=== PATIENT | male | born 1980 | race Caucasian/White ===

== ENCOUNTER 2022-12-01 23:08 | Inpatient (IN) | payer OTHER, SELFPAY ==
[2022-12-01 23:10] VITALS: BP 139/87; PULSE 129; RESP 20; TEMP 38.6; O2SAT 92; BMI 43.4
[2022-12-01 23:15] VITALS: O2SAT 94
--- NOTE | 2022-12-01 23:15 | EKG12_ITS ---
Test Reason : DYSRHYTHMIA Blood Pressure : / mmHG Vent. Rate : 126 BPM Atrial Rate : 126 BPM P-R Int : 144 ms QRS Dur : 094 ms QT Int : 304 ms P-R-T Axes : 062 022 007 degrees QTc Int : 440 ms Sinus tachycardia Otherwise normal ECG Confirmed by SIS GOLDSTEIN, PETAR ([id number]), newspaper or periodical editor ROSIBEL ESQUEDA ([id number]) on 12/03/2022 12:19:19 PM Referred By: BETI Confirmed By:PETAR ALEGRE MD
--- NOTE | 2022-12-01 23:17 | ED.VIS.DYS ---
HPI History of Present Illness Chief Complaint: Shortness of Breath Narrative Narrative: Patient presents with shortness of breath for the past few days also with fever and a slight cough. 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 He has been taking his medications and he has been eating and drinking relatively well. [facility] Medical History (Updated 12/02/22 @ 00:[address] Nolan Toscano MD) Meningitis Home Medications divalproex 500 mg tablet,extended release 24 hr 1,000 mg PO BID 12/02/22 [History Last Taken Unknown] haloperidol 1 mg tablet 2 mg PO DAILY 12/02/22 [History Last Taken Unknown] Allergy/AdvReac Type Severity Reaction Status Date / Time ibuprofen AdvReac Other Verified 12/02/22 00:00 Social History Smoking Status: Never smoker ROS ROS ED ROS Narrative Past medical history: Reviewed Medications: Reviewed Social history: Noncontributory Review of systems: All systems negative except as indicated General: Fever as in HPI Eyes: No visual changes ENT: No upper airway congestion, normal voice Neck: No neck pain Cardiovascular: No chest pain Respiratory: Difficulty breathing Gastrointestinal: No abdominal pain, nausea vomiting or diarrhea Genitourinary: No dysuria Musculoskeletal: Denies myalgias no difficulty with ambulation Skin: No rash EXAM Physical Exam Narrative Exam Narrative: Physical exam General: Patient appears in some distress. Head: Normocephalic, Atraumatic Eyes: Conjunctiva not pale ENT: Slightly dry mucous membranes Neck: Supple, Nontender, No lymphadenopathy Cardiovascular: Regular tachycardia Respiratory: He is tachypneic but overall clear breath sounds. Abdomen: Soft, Nontender, Nondistended Back: Nontender, Normal Inspection. Negative for: CVA tenderness Extremities: Nontender, No edema Skin: Normal color, No rash Neurological: No focal deficit Const Vital Signs: 12/01/22 23:10 12/01/22 23:28 12/01/22 23:28 Temperature 101.5 F H Temperature Source Oral Pulse Rate 129 H 130 H Respiratory Rate 20 H 26 H 28 H Respiratory Effort Non-Labored Short of Breath Respiratory Depth Shallow Respiratory Pattern Tachypnea Tachypnea Blood Pressure 139/87 H Blood Pressure Mean 104 Pulse Ox 92 93 Oxygen Delivery Method Room Air Room Air Oxygen Flow Rate (L/min) 12/01/22 23:15 12/01/22 23:58 Temperature Temperature Source Pulse Rate 125 H Respiratory Rate 32 H Respiratory Effort Respiratory Depth Respiratory Pattern Blood Pressure 139/81 H Blood Pressure Mean 100 Pulse Ox 94 94 Oxygen Delivery Method Nasal Cannula Nasal Cannula Oxygen Flow Rate (L/min) 2 2 MDM MDM Lab Data Labs: Laboratory Results - last 24 hr 12/01/22 12/01/22 12/01/22 00:16 23:25 23:25 WBC 11.6 H RBC 4.57 L Hgb 12.9 L Hct 38.6 L MCV 84.5 MCH 28.2 MCHC 33.4 RDW Std Deviation 41.9 RDW Coeff of Deepak 13.7 Plt Count 188 MPV 10.8 Immature Gran % (Auto) 1.600 H Neut % (Auto) 75.0 H Lymph % (Auto) 13.4 L [place] % (Auto) 9.0 Eos % (Auto) 0.6 Baso % (Auto) 0.4 Absolute Neuts (auto) 8.7 H Absolute Lymphs (auto) 1.55 Nucleated RBC % 0 PT 14.4 INR 1.2 APTT 31.2 Sodium Potassium Chloride Carbon Dioxide Anion Gap BUN Creatinine Estim Creat Clear Calc Est GFR (MDRD) Af Amer Est GFR (MDRD) Non-Af BUN/Creatinine Ratio Glucose Lactic Acid Calcium Total Bilirubin AST ALT Alkaline Phosphatase Troponin I High Sens Total Protein Albumin Globulin Albumin/Globulin Ratio Procalcitonin Urine Color Yellow Urine Clarity Clear Urine pH 7.0 Ur Specific [place] 1.005 Urine Protein 30 H Urine Glucose (UA) Normal Urine Ketones 50 H Urine Occult Blood 25 H Urine Nitrite Negative Urine Bilirubin Negative Urine Urobilinogen 1 H Ur Leukocyte Esterase Negative 12/01/22 12/01/22 12/01/22 23:25 23:25 23:25 WBC RBC Hgb Hct MCV MCH MCHC RDW Std Deviation RDW Coeff of Deepak Plt Count MPV Immature Gran % (Auto) Neut % (Auto) Lymph % (Auto) [place] % (Auto) Eos % (Auto) Baso % (Auto) Absolute Neuts (auto) Absolute Lymphs (auto) Nucleated RBC % PT INR APTT Sodium 137 Potassium 3.5 Chloride 104 Carbon Dioxide 24.0 Anion Gap 9 BUN 11 Creatinine 1.19 Estim Creat Clear Calc 85.25 Est GFR (MDRD) Af Amer 86 Est GFR (MDRD) Non-Af 71 BUN/Creatinine Ratio 9.2 L Glucose 118 H Lactic Acid 0.8 Calcium 8.8 Total Bilirubin 0.40 AST 16 ALT 23 Alkaline Phosphatase 64 Troponin I High Sens 11 Total Protein 7.6 Albumin 2.9 L Globulin 4.7 H Albumin/Globulin Ratio 0.6 L Procalcitonin 0.36 H Urine Color Urine Clarity Urine pH Ur Specific [place] Urine Protein Urine Glucose (UA) Urine Ketones Urine Occult Blood Urine Nitrite Urine Bilirubin Urine Urobilinogen Ur Leukocyte Esterase ABG Data ABG results: ABG 12/01/22 23:45 Specimen Type LUCI VBG pH 7.50 H VBG pO2 116 H VBG HCO3 22 VBG Total CO2 23 VBG O2 Sat (Calc) 99 H VBG Base Excess -1 POC Mix VBG pCO2 Pt Tmp 28.7 L O2 Delivery Device Room Air Radiography Diagnostic Testing: Clinical Impression(s) from Imaging Studies Chest X-Ray 12/01/22 23:50 IMPRESSION: 1. Mild patchy opacity right lung base medially may be due to atelectasis or small area of consolidation/pneumonia. 2. Low lung volumes limit the exam. Electronically Signed: Yosi Abad MD at 0:12 EST , Chest x-ray interpreted by me shows a right-sided pneumonia. EKG Initial EKG: Comments: Sinus rhythm with a rate of 126. Normal IA interval. Normal QTc intervals. No acute ischemic changes. Interpreted by emergency doctor Treatment and Re-Evaluation Narrative: A. Problems addressed Patient is found to have a right-sided pneumonia he is tachypneic at baseline his oxygen was 92% with a heart rate in the 130s, this improved with oxygen and IV fluids. He is given Rocephin and azithromycin blood cultures were drawn. He does not manifest evidence of septic shock at this time but he certainly has sepsis and because of his breathing difficulties significant respiratory distress he will need to be admitted. B. Amount and/or complexity of the data 1. I talked to the patient's [id number] Blood work including CBC lactate CMP COVID were all ordered interpreted by me 2. Independent interpretation of test Telemetry: Sinus rhythm with a rate in the 120s 3. I discussed the patient with the hospitalist will admit C. Risk of complications and/or morbidity Differential diagnosis: I thought about pulmonary embolism however I see a right-sided pneumonia on the x-ray patient has a fever and leukocytosis therefore I believe this is likely the etiology. I thought about pneumothorax over the x-ray does not show this. I thought about CHF however x-ray and physical exam are not consistent with this. Critical Care Time Critical Care Time: Yes Critical care time (excluding procedures): 30-74 minutes, Discussing w/Patient &/or Family/Engineer Intern, Discussing w/Consultants, Arranging Admission or Transfer, Performing Direct Patient Care at Bedside and - (Critical care time is 30 minutes. Patient has borderline hypoxia sepsis and pneumonia he has cognitive disability and it is difficult to get information from him I had to get information from sources. I did spend time at the bedside in time with the family as well discussing care with hospitalist.) Discharge Plan Dx/Rx/DC Orders Clinical Impression: Pneumonia, Acute respiratory distress, Tachypnea, Sepsis, Cognitive developmental delay Disposition Disposition: Acute Care Hospital [facility]
[2022-12-01 23:28] VITALS: PULSE 130; RESP 26; RESP 28; O2SAT 93
[2022-12-01] MEDS: Ipratropium/Albuterol Sulfate 3 ML AMPUL.NEB INHALATION (23:28)
[2022-12-01] MEDS: Ketorolac 30 MG/ML Syringe IV (23:28)
[2022-12-01] MEDS: 0.9% Normal Saline 1,000 ML 999 ML IV (23:29)
[2022-12-01 23:46] LABS: International Normalized Ratio 1.2; Prothrombin Time (Protime)PT. 14.4 SECONDS (11.7-14.9)
[2022-12-01 23:47] LABS: Partial Thromboplast Time 31.2 Seconds (24.1-36.2)
[2022-12-01 23:50] LABS: Absolute Lymphocyte Count 1.55 X10^3/uL (0.83-4.51); Absolute Neutrophil Count 8.7 X10^3/uL (2.0-7.7); Basophil# 0.05 X10^3/uL; Basophil% 0.4 % (0-1); Eosinophil# 0.07 X10^3/uL; Eosinophils% 0.6 % (0-5); Hematocrit 38.6 % (40-54); Hemoglobin 12.9 g/dL (13.0-16.5); Lymphocyte # 1.55 X10^3/ul (0.83-4.51); Lymphocyte % 13.4 % (19-41); Mean Corp Hgb Conc 33.4 g/dL (32-36); Mean Corpuscular Hgb 28.2 pg (27.0-32.0); Mean Corpuscular Volume 84.5 fL (80-94); Mean Platelet Vol. 10.8 fl (6.2-12.0); Monocyte# 1.04 X10^3/uL; NRBC Flagged by Analyzer 0 % (0-5); Platelet Count 188 K/mm3 (150-450); RBC Distribution Width CV 13.7 % (11.6-14.6); RBC Distribution Width SD 41.9 fl (35.1-43.9); Red Blood Count 4.57 M/mm3 (4.6-6.2); White Blood Count 11.6 K/mm3 (4.4-11.0)
[2022-12-01 23:50] LABS: Blood Gas Specimen Type VEN; O2 Delivery Device Room Air; VBG BASE EXCESS -1 mmol/L (-1.0-3.5); VBG Bicarbonate 22 mmol/L (22-26); VBG PO2 116 mmHg (25-40); VBG SO2 99 % (50-70); VBG TCO2 23 mmol/L (23-33); VBG pCO2 28.7 mmHg (41-51)
--- NOTE | 2022-12-01 23:50 | RAD_ITS ---
EXAM: XR CHEST, 1 VIEW CLINICAL INDICATION: sob TECHNIQUE: Frontal view of the chest. This report was created using [employer] report generation technology. COMPARISON: None. FINDINGS: LUNGS AND PLEURAL SPACES: Mild patchy opacity right lung base medially may be due to atelectasis or small area of consolidation/pneumonia. Low lung volumes limit the exam. No pneumothorax. No effusion. HEART: Unremarkable. Cardiac silhouette not enlarged. MEDIASTINUM: Central airways and mediastinal contour are unremarkable. BONES/JOINTS: Unremarkable. SOFT TISSUES: Unremarkable. RAD/Chest 1 View (Portable) IMPRESSION: 1. Mild patchy opacity right lung base medially may be due to atelectasis or small area of consolidation/pneumonia. 2. Low lung volumes limit the exam. Electronically Signed: Yosi Abad MD at 0:12 EST ,
[2022-12-01 23:58] VITALS: BP 139/81; PULSE 125; RESP 32; O2SAT 94
[2022-12-02] VITALS (11 sets, daily range): BP systolic 121–137; BP diastolic 39–82; PULSE 104–122; RESP 20–28; TEMP 36.5–37.1; O2SAT 88–96; BMI 44.6
[2022-12-02 00:16] LABS: ALB/GLOB Ratio 0.6 RATIO (0.9-2.4); AST(SGOT) 16 U/L (15-37); Alanine Aminotransfer ALT/SGPT 23 U/L (16-61); Albumin, Serum 2.9 g/dL (3.2-5.0); Alkaline Phosphatase 64 U/L (45-117); Anion Gap 9 (5-15); BUN 11 mg/dL (7-18); BUN/Creat Ratio 9.2 RATIO (10-20); Calcium,Total 8.8 mg/dL (8.5-10.1); Chloride 104 mmol/L (98-107); Creatinine, Serum 1.19 mg/dL (0.70-1.30); EST Glomerular Filtration Rate 71 mL/min (>60); Est Glom Filt Rate - Afr Amer 86 mL/min (>60); Estimated Creatinine Clearance 85.25 ml/min; Globulin 4.7 g/dL (2.2-4.2); Glucose 118 mg/dL (74-106); Potassium 3.5 mmol/L (3.5-5.1); Protein, Total 7.6 g/dL (6.4-8.2); Sodium Level 137 mmol/L (136-145); Troponin-I HS 11 pg/mL (3.0-78.0)
[2022-12-02 00:17] LABS: Lactic Acid 0.8 mmol/L (0.4-1.9)
[2022-12-02 00:20] LABS: Bacteria 0 SEEN /hpf (None Seen); Mucous, Urine 0 SEEN /hpf (<or=2+); Squamous Epithelial Cells - UA 0 SEEN /hpf (0-5)
[2022-12-02 00:20] LABS: Procalcitonin 0.36 ng/mL (0.00-0.09)
[2022-12-02] MEDS: Ceftriaxone 1 GM/50 ML BAG IV (00:21)
[2022-12-02 00:22] LABS: Color, Urine Yellow (Yellow); Glucose, Dipstick Normal (Normal); Ketone-Dipstick 50 mg/dl (Negative); Leukocyte Esterase-Dipstick Negative /ul (Negative); Nitrite-Dipstick Negative (Negative); Occult Blood-Urine 25 /ul (Negative); Protein-Dipstick 30 mg/dl (Negative); Specific Gravity, Urine 1.005 (1.002-1.030); Urine Bilirubin Dipstick Negative (Negative); Urine Clarity Clear (Clear); Urine Urobilinogen 1 mg/dl (Normal)
[2022-12-02 00:28] LABS: Red Blood Cells-Urine 0-5 SEEN /hpf (0-5); White Blood Cells 0-5 SEEN /hpf (0-5)
--- NOTE | 2022-12-02 01:05 | HP.PCM.HOS_ITS ---
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 Of note a day before presentation patient developed fever and flulike symptoms. The patient's home temperature was between 101 Fahrenheit to 102 Fahrenheit. Associated with his symptoms is chills and malaise. Also patient was diaphoretic. Further patient developed rash and swelling on his scalp. Per family there are some swelling on patient's scalp is going down. Patient lives at home with his mother. However patient mother has traveled. With patient feeling well other family members moved in to help patient. Of note patient is adopted. Of note patient could only marginally contribute to history secondary to cognitive deficits. Majority of history was provided by patient nephew who was at the bedside. [facility] Medical History Meningitis Home Medications divalproex 500 mg tablet,extended release 24 hr 1,000 mg PO BID 12/02/22 [History Last Taken Unknown] haloperidol 1 mg tablet 2 mg PO DAILY 12/02/22 [History Last Taken Unknown] Allergy/AdvReac Type Severity Reaction Status Date / Time ibuprofen AdvReac Other Verified 12/02/22 00:00 Family History adopted adopted Surgical History no surgical history no surgical history Social History Smoking Status: Never smoker ROS Review of Systems ROS Unobtainable: other Details: Pertinent positives and pertinent negatives that could be provided by patient's family is as noted in HPI. All other systems were reviewed patient's family did not know or they were negative. Vital Signs Vital Signs Vital Signs: 12/01/22 23:10 12/01/22 23:28 12/01/22 23:28 Temperature 101.5 F H Temperature Source Oral Pulse Rate 129 H 130 H Respiratory Rate 20 H 26 H 28 H Respiratory Effort Non-Labored Short of Breath Respiratory Depth Shallow Respiratory Pattern Tachypnea Tachypnea Blood Pressure 139/87 H Blood Pressure Mean 104 Pulse Ox 92 93 Oxygen Delivery Method Room Air Room Air Oxygen Flow Rate (L/min) 02/11/23 23:15 12/01/22 23:58 12/02/22 00:52 Temperature 98.2 F Temperature Source Oral Pulse Rate 125 H 113 H Respiratory Rate 32 H 26 H Respiratory Effort Respiratory Depth Respiratory Pattern Blood Pressure 139/81 H 129/68 H Blood Pressure Mean 100 88 Pulse Ox 94 94 95 Oxygen Delivery Method Nasal Cannula Nasal Cannula Nasal Cannula Oxygen Flow Rate (L/min) 2 2 2 12/02/22 00:54 Temperature Temperature Source Pulse Rate Respiratory Rate Respiratory Effort Short of Breath Respiratory Depth Normal Respiratory Pattern Tachypnea Blood Pressure Blood Pressure Mean Pulse Ox Oxygen Delivery Method Room Air Oxygen Flow Rate (L/min) Weight Weight: 141.1 kg Body Mass Index (BMI) 43.4 Physical Exam Narrative Physical exam: General: Morbidly obese Head: Urticarial rash on forehead and scalp. Normocephalic, atraumatic, no tenderness Eyes: Vision is grossly intact. EOMI ENT, no trauma, moist mucous membranes, no rhinorrhea Neck: Nontender, No thyromegaly. CVS: Regular rate and rhythm. S1-S2 present. No murmur, gallop or rub. Respiratory : clear to auscultation bilaterally, chest wall nontender, no wheezing Abdomen: Soft, nontender, nondistended, normal bowel sounds, no masses : Deferred Back: Nontender, no CVA tenderness, no midline spinal tenderness, deformities, step-offs Extremities: Nontender full range of motion, no trauma Skin: Normal color, no trauma, abrasions Neuro: Alert, cranial nerves II through XII grossly intact. Psychiatry: Normal mood. Normal affect. Not depressed. Not anxious. Results Lab / Micro Data Result Diagrams: 12/01/22 23:25 12/01/22 23:25 Labs: Laboratory Results - last 24 hr 12/01/22 00:16: Urine Color Yellow, Urine Clarity Clear, Urine pH 7.0, Ur Specific [place] 1.005, Urine Protein 30 H, Urine Glucose (UA) Normal, Urine Ketones 50 H, Urine Occult Blood 25 H, Urine Nitrite Negative, Urine Bilirubin Negative, Urine Urobilinogen 1 H, Ur Leukocyte Esterase Negative, Urine RBC 0-5 SEEN, Urine WBC 0-5 SEEN, Ur Squamous Epith Cells 0 SEEN, Urine Bacteria 0 SEEN, Urine Mucus 0 SEEN 12/01/22 23:25: WBC 11.6 H, RBC 4.57 L, Hgb 12.9 L, Hct 38.6 L, MCV 84.5, MCH 28.2, MCHC 33.4, RDW Std Deviation 41.9, RDW Coeff of Deepak 13.7, Plt Count 188, MPV 10.8, Immature Gran % (Auto) 1.600 H, Neut % (Auto) 75.0 H, Lymph % (Auto) 13.4 L, [place] % (Auto) 9.0, Eos % (Auto) 0.6, Baso % (Auto) 0.4, Absolute Neuts (auto) 8.7 H, Absolute Lymphs (auto) 1.55, Nucleated RBC % 0 12/01/22 23:25: PT 14.4, INR 1.2, APTT 31.2 12/01/22 23:25: Sodium 137, Potassium 3.5, Chloride 104, Carbon Dioxide 24.0, Anion Gap 9, BUN 11, Creatinine 1.19, Estim Creat Clear Calc 85.25, Est GFR (MDRD) Af Amer 86, Est GFR (MDRD) Non-Af 71, BUN/Creatinine Ratio 9.2 L, Glucose 118 H, Calcium 8.8, Total Bilirubin 0.40, AST 16, ALT 23, Alkaline Phosphatase 64, Troponin I High Sens 11, Total Protein 7.6, Albumin 2.9 L, Globulin 4.7 H, Albumin/Globulin Ratio 0.6 L 12/01/22 23:25: Lactic Acid 0.8 12/01/22 23:25: Procalcitonin 0.36 H Micro: Microbiology 12/01/22 23:30 Nasal Secretion SARS-CoV-2 Antigen (Rapid) - Final ABG Data ABG results: ABG 12/01/22 23:45 Specimen Type LUCI VBG pH 7.50 H VBG pO2 116 H VBG HCO3 22 VBG Total CO2 23 VBG O2 Sat (Calc) 99 H VBG Base Excess -1 POC Mix VBG pCO2 Pt Tmp 28.7 L O2 Delivery Device Room Air Radiology Impression Chest X-Ray 12/01/22 23:50 IMPRESSION: 1. Mild patchy opacity right lung base medially may be due to atelectasis or small area of consolidation/pneumonia. 2. Low lung volumes limit the exam. Electronically Signed: Yosi Abad MD at 0:12 EST , Assessment & Plan Assessment/Plan (1) Pneumonia: (2) Acute respiratory distress: PLAN: Plan Pneumonia Gram-positive or gram-negative. Respiratory rate in the high 20s and 30s on presentation and with tachycardia highest of 130 Patient meets SIRS criteria. Chest x-ray: With radiographic evidence of opacity at right base. Chest x-ray was independently interpreted and I agree with radiologist interpretation. Source of infection pneumonia Sepsis rule out as there is no organ dysfunction. Antibiotics: Started on Rocephin and azithromycin emergency department. Rocephin continued. Doxycycline ordered. Albuterol as needed Legionella antigen screen and Strep antigen ordered CBC showed white count of 11,600, trend. Also with bandemia of 1.6%. Procalcitonin is indeterminate at 0.36. Urticaria rash on scalp Per family improving. Doxycycline as above. Psychiatry disease Stable Home Haldol and valproic acid continued. DVT prophylaxis Subcutaneous Lovenox ordered. Charges/Coding Visit Charges Inpatient E&M: 53935 Init Hosp L3
[2022-12-02 05:17] LABS: Absolute Lymphocyte Count 1.49 X10^3/uL (0.83-4.51); Absolute Neutrophil Count 9.1 X10^3/uL (2.0-7.7); Basophil# 0.04 X10^3/uL; Basophil% 0.3 % (0-1); Eosinophil# 0.06 X10^3/uL; Eosinophils% 0.5 % (0-5); Hematocrit 38.8 % (40-54); Hemoglobin 12.6 g/dL (13.0-16.5); Lymphocyte # 1.49 X10^3/ul (0.83-4.51); Lymphocyte % 12.4 % (19-41); Mean Corp Hgb Conc 32.5 g/dL (32-36); Mean Corpuscular Hgb 27.6 pg (27.0-32.0); Mean Corpuscular Volume 85.1 fL (80-94); Monocyte# 1.17 X10^3/uL; Monocyte% 9.8 % (0-10); NRBC Flagged by Analyzer 0 % (0-5); Neutrophil # 9.12 X10^3/uL (2.7-7.7); Neutrophil % 76.2 % (47-70); Platelet Count 195 K/mm3 (150-450); RBC Distribution Width CV 13.7 % (11.6-14.6); RBC Distribution Width SD 42.6 fl (35.1-43.9); Red Blood Count 4.56 M/mm3 (4.6-6.2)
[2022-12-02 05:53] LABS: Anion Gap 9 (5-15); BUN 12 mg/dL (7-18); BUN/Creat Ratio 10.7 RATIO (10-20); Calcium,Total 8.4 mg/dL (8.5-10.1); Chloride 102 mmol/L (98-107); Creatinine, Serum 1.12 mg/dL (0.70-1.30); EST Glomerular Filtration Rate 76 mL/min (>60); Est Glom Filt Rate - Afr Amer 92 mL/min (>60); Estimated Creatinine Clearance 90.58 ml/min; Glucose 115 mg/dL (74-106); Potassium 3.4 mmol/L (3.5-5.1); Sodium Level 136 mmol/L (136-145)
[2022-12-02] MEDS: Haloperidol 1 MG Tablet 2 MG PO (09:29)
[2022-12-02] MEDS: Potassium Chloride Oral Tablet 20 MEQ 40 MEQ PO ×2 (09:29→11:22)
[2022-12-02] MEDS: Enoxaparin 40 MG/0.4 ML Syringe SC ×2 (09:29→21:21)
[2022-12-02] MEDS: 0.9% Saline Lock 10 ML Syringe IV (09:30)
[2022-12-02] MEDS: Divalproex (ER) 500 MG Tablet 1000 MG PO ×2 (09:30→21:21)
--- NOTE | 2022-12-02 14:20 | PCM.PN.HOSP ---
Reason for Visit Reason for Visit: Diagnoses Pneumonia, unspecified organism (12/02/22) Acute respiratory distress (12/02/22) Subjective Subjective Follow-up for shortness of breath and fever. Possible pneumonia Objective Data Objective Data Vital Signs: Vital Signs Temp Pulse Resp BP Pulse Ox O2 Del Method O2 Flow Rate 97.7 F L 120 H 28 H 128/77 H 96 Nasal Cannula 2 12/02/22 02:17 12/02/22 02:19 12/02/22 02:19 12/02/22 02:17 12/02/22 02:17 12/02/22 02:19 12/02/22 02:19 Oxygen Flow Rate (L/min) 2 Oxygen Delivery Method Nasal Cannula Weight: 320 lb 5.306 oz Body Mass Index (BMI) 44.6 Intake & Output: Intake and Output for Last 24 Hours 11/30/22 12/01/22 12/02/22 23:59 23:59 23:59 Intake Total 1565 / 1565 Output Total 200 / 200 Balance 1365 / 1365 Lab / Micro Data Result Diagrams: 12/02/22 04:58 12/02/22 04:58 Labs: Laboratory Results - last 24 hr 12/01/22 00:16: Urine Color Yellow, Urine Clarity Clear, Urine pH 7.0, Ur Specific [place] 1.005, Urine Protein 30 H, Urine Glucose (UA) Normal, Urine Ketones 50 H, Urine Occult Blood 25 H, Urine Nitrite Negative, Urine Bilirubin Negative, Urine Urobilinogen 1 H, Ur Leukocyte Esterase Negative, Urine RBC 0-5 SEEN, Urine WBC 0-5 SEEN, Ur Squamous Epith Cells 0 SEEN, Urine Bacteria 0 SEEN, Urine Mucus 0 SEEN 12/01/22 23:25: WBC 11.6 H, RBC 4.57 L, Hgb 12.9 L, Hct 38.6 L, MCV 84.5, MCH 28.2, MCHC 33.4, RDW Std Deviation 41.9, RDW Coeff of Deepak 13.7, Plt Count 188, MPV 10.8, Immature Gran % (Auto) 1.600 H, Neut % (Auto) 75.0 H, Lymph % (Auto) 13.4 L, [place] % (Auto) 9.0, Eos % (Auto) 0.6, Baso % (Auto) 0.4, Absolute Neuts (auto) 8.7 H, Absolute Lymphs (auto) 1.55, Nucleated RBC % 0 12/01/22 23:25: PT 14.4, INR 1.2, APTT 31.2 12/01/22 23:25: Sodium 137, Potassium 3.5, Chloride 104, Carbon Dioxide 24.0, Anion Gap 9, BUN 11, Creatinine 1.19, Estim Creat Clear Calc 85.25, Est GFR (MDRD) Af Amer 86, Est GFR (MDRD) Non-Af 71, BUN/Creatinine Ratio 9.2 L, Glucose 118 H, Calcium 8.8, Total Bilirubin 0.40, AST 16, ALT 23, Alkaline Phosphatase 64, Troponin I High Sens 11, Total Protein 7.6, Albumin 2.9 L, Globulin 4.7 H, Albumin/Globulin Ratio 0.6 L 12/01/22 23:25: Lactic Acid 0.8 12/01/22 23:25: Procalcitonin 0.36 H 12/02/22 04:58: WBC 12.0 H, RBC 4.56 L, Hgb 12.6 L, Hct 38.8 L, MCV 85.1, MCH 27.6, MCHC 32.5, RDW Std Deviation 42.6, RDW Coeff of Deepak 13.7, Plt Count 195, MPV 11.0, Immature Gran % (Auto) 0.800, Neut % (Auto) 76.2 H, Lymph % (Auto) 12.4 L, [place] % (Auto) 9.8, Eos % (Auto) 0.5, Baso % (Auto) 0.3, Absolute Neuts (auto) 9.1 H, Absolute Lymphs (auto) 1.49, Nucleated RBC % 0 12/02/22 04:58: Sodium 136, Potassium 3.4 L, Chloride 102, Carbon Dioxide 25.0, Anion Gap 9, BUN 12, Creatinine 1.12, Estim Creat Clear Calc 90.58, Est GFR (MDRD) Af Amer 92, Est GFR (MDRD) Non-Af 76, BUN/Creatinine Ratio 10.7, Glucose 115 H, Calcium 8.4 L Micro: Microbiology 12/02/22 00:16 Urine, Clean Catch Legionella Antigen - Final 12/02/22 00:16 Urine, Clean Catch Streptococcus pneumoniae Antigen (M - Final 12/01/22 23:30 Mucosa - Nasopharyngeal Respiratory Panel (PCR) - Final 12/01/22 23:30 Nasal Secretion SARS-CoV-2 Antigen (Rapid) - Final ABG Data ABG results: ABG 12/01/22 23:45 Specimen Type LUCI VBG pH 7.50 H VBG pO2 116 H VBG HCO3 22 VBG Total CO2 23 VBG O2 Sat (Calc) 99 H VBG Base Excess -1 POC Mix VBG pCO2 Pt Tmp 28.7 L O2 Delivery Device Room Air Radiography Diagnostic Testing: Radiology Impression Chest X-Ray 12/01/22 23:50 IMPRESSION: 1. Mild patchy opacity right lung base medially may be due to atelectasis or small area of consolidation/pneumonia. 2. Low lung volumes limit the exam. Electronically Signed: Yosi Abad MD at 0:12 EST , Physical Exam Narrative Seen and examined. Discussed with patient's mother, brother and sister near the bedside. 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 Patient denies features of aspiration, cough or choking while eating. He wakes up during the night possible sleep apnea. Physical exam General: Alert, Oriented x3, Cooperative, morbidly obese, BMI 44.7 kg/m? HEENT: Atraumatic, PERRLA, EOMI, Normocephalic Oral: Deep oropharyngeal structures could not be clearly visualized. No Gingival or Mucosal Lesions/ Ulcerations Neck: Supple, No JVD, Negative Carotid Bruits Lungs: Air entry diminished in bilateral lung bases. No crepitation/rhonchi Cardiovascular: Regular rate, Regular Rhythm, Normal S1, Normal S2, No murmurs Abdomen: Bowel Sounds Present, Soft, Non Tender, Non-Distended : No renal angle tenderness. No suprapubic tenderness. Extremities: No edema, Capillary Refill Less than 3 Seconds Skin: Erythematous rash with thickened skin present over forehead extending to temples, seems chronic dermatitis. Musculoskeletal: No Tenderness to Palpation of Joints or Extremities. ROM full and intact. Neurological: Cranial nerves II-XII grossly intact, DTR 2+/4 , Neuro grossly intact Psych/Mental Status: Mild cognitive deficit. Assessment & Plan Assessment/Plan (1) Pneumonia: (2) Acute respiratory distress: PLAN: Plan This is a 42-year-old gentleman who was admitted for shortness of breath and mild fever.As per sister, patient's home temperature was between 101 202 Fahrenheit. Possible right lower lobe pneumonia/atelectasis: Exact etiology unclear. Chest x-ray initially reviewed and shows right middle lower lobe infiltrate. Patient does not have sepsis therefore ruled out. On IV ceftriaxone and and doxycycline. Patient was tachycardic and tachypneic in ED. CBC is shows mild leukocytosis. Procalcitonin mildly elevated. Rapid SARS-CoV-2 antigen, urinary antigens and respiratory panel are negative. Will need outpatient pulmonary clinic visit for PFT and sleep study. Mild hypokalemia, potassium replaced. 2. Chronic dermatitis on the scalp: Patient family not aware of atopic dermatitis but patient might have history of asthma as per mother. Hydrocortisone topical cream ordered. 3. 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 Follow-up DVT prophylaxis Subcutaneous Lovenox ordered.
[2022-12-02] MEDS: Hydrocortisone 2.5% Crm 1 APPLIC TOPICAL ×2 (16:49→21:20)
[2022-12-02] MEDS: Doxycycline 100 MG CAPSULE PO (21:23)
[2022-12-03 04:00] VITALS: BP 110/76; PULSE 99; RESP 20; TEMP 36.9; O2SAT 96
--- NOTE | 2022-12-03 07:37 | DCINST_ITS ---
Discharge Instructions Diet Discharge Diet: No restrictions Activity Discharge Activity: Return to Normal Activity Weight Bearing Status: Weight bearing as tolerated Dressing / Incision Call your doctor if you observe: Fever of 101 or Higher, Coldness, Increased Pain, Numbness or Tingling, Change in Color, Inability to urinate, Inability to have a bowel movement, Shortness of breath, Dizziness, Fainting spells, Swelling in the ankles, Chest pain, Prolonged hiccupping, Increased palpitations (irregular heartbeat) and Calf discomfort Follow Up Care When: IN 2 WEEKS Test Results: Test results from this visit will be discussed in further detail at your follow- up appointment, if applicable. Discharge Plan Admission Admit Date/Time: 12/02/22 01:06 Primary Reason for Your Visit: Suspected pneumonia. Attending Provider: Andrea Joseph Primary Care Provider: Andrew Miles Consulting Providers: Vince Sosa Discharge Orders/Prescriptions Prescriptions: New levofloxacin 500 mg tablet 500 mg PO DAILY 5 Days Qty: 5 0RF hydrocortisone 2.5 % Cream 1 applic topical BID Qty: 28 0RF Protocol: *Topical Application Instructions APPLICATION INSTRUCTIONS: On forehead Rx Instructions: apply on forehead Continued haloperidol 1 mg Tablet 2 mg PO DAILY divalproex 500 mg Tablet Extended Release 24 Hr 1,000 mg PO BID Referrals / Follow Up: Cecilio Avila DO [Med Staff - Active Staff] - Within 1 Month (for PFT and sleep study.) Pili Castaneda MD [Non-Staff] - Andrew Miles MD [Primary Care Provider] - Disposition Disposition (needs filled in before D/C Order can be placed): Home, Self Care
[2022-12-03 08:22] VITALS: O2SAT 92
[2022-12-03 08:47] VITALS: BP 141/98; PULSE 97; RESP 20; TEMP 36.6; O2SAT 97
[2022-12-03] MEDS: Doxycycline 100 MG CAPSULE PO (08:48)
[2022-12-03] MEDS: Divalproex (ER) 500 MG Tablet 1000 MG PO (08:48)
[2022-12-03] MEDS: Hydrocortisone 2.5% Crm 1 APPLIC TOPICAL (08:48)
[2022-12-03] MEDS: Enoxaparin 40 MG/0.4 ML Syringe SC (08:48)
[2022-12-03] MEDS: 0.9% Saline Lock 10 ML Syringe IV (08:51)
[2022-12-03] MEDS: Haloperidol 1 MG Tablet 2 MG PO (08:51)
--- NOTE | 2022-12-03 13:00 | CASEMGMT ---
RN?CM?FITNESS TECHNICIAN?CM?to room to meet with patient and his mother for initial transition planning/care coordination?assessment.?RN?CM?introduced self and role at [facility].?? Pt resting in bed in no distress at this time.? Pt is A/O, but has some cognitive delays d/t childhood meningitis. Mother/GdnCamila, is at bedside and the following information obtained from her. Care providers, pharmacy, and demographics verified/updated at this time. PCP: Dr Miles @ [facility] Specialists: Pili Castaneda-psychiatrist Preferred Pharmacy: [facility] retail Insurance: [facility] package plan Prescription Benefit:?none Living Will/HPOA:?Mother, Camila Mitchell, states she is legal guardian. LNOK: Mother/guardianCamila Living Arrangements: Lives w/mother in one-story home w/basement and 3 steps to enter. Pt is independent w/ADL's and states he enjoys cooking. Mother assists w/medications and w/taking care of pt. Pt works at a restaurant bussing tables. Transportation:?mother drives. DME: ? Denies using any DME and denies needs.? HHC/SNF: No hx of either. Miother wishes for pt to return home and states has no concerns with going home at time of discharge.?CM?to follow for home oxygen needs and any further discharge planning/needs.? Mother and pt voice no further concerns/needs at this time.? PLAN:??Home w/mother and discharge plans in place. Candida STANLEYN?RN?CM
--- NOTE | 2022-12-03 14:00 | NURSING ---
PEP therapy and IS given to patient and he and his mother were instructed on how to use. Patient demonstrated use of both devices.
--- NOTE | 2022-12-03 14:41 | DS.PCM_ITS ---
Providers Date of Admission: 12/02/22 Date of Discharge: 12/03/22 Primary Care Physician: Dr. Andrew Miles MD Reason For Visit: PNEUMONIA Diagnosis Discharge Diagnosis (1) Pneumonia: Status: Acute Code(s): J18.9 - Pneumonia, unspecified organism (2) Acute respiratory distress: Status: Acute Code(s): R06.03 - Acute respiratory distress Plan This is a 42-year-old gentleman who was admitted for shortness of breath and mild fever.As per sister, patient's home temperature was between 101 202 Fahrenheit. Possible right lower lobe pneumonia/atelectasis: Exact etiology unclear. Chest x-ray initially reviewed and shows right middle lower lobe infiltrate. Patient does not have sepsis therefore ruled out. On IV ceftriaxone and and doxycycline. Patient was tachycardic and tachypneic in ED. CBC is shows mild leukocytosis. Procalcitonin mildly elevated. Rapid SARS-CoV-2 antigen, urinary antigens and respiratory panel are negative. Will need outpatient pulmonary clinic visit for PFT and sleep study. Mild hypokalemia, potassium replaced. 12/03: Shortness of breath has resolved. Patient is ready to go home. Discharged on Levaquin to complete a total of 7 days of antibiotic. Advised follow-up with Dr. Avila in about 1 month for PFT and sleep study. Suspected obstructive sleep apnea. 2. Chronic dermatitis on the scalp: Patient family not aware of atopic dermatitis but patient might have history of asthma as per mother. Hydrocortisone topical cream ordered. Prescription for hydrocortisone topical cream given. 3. 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 Follow-up DVT prophylaxis Subcutaneous Lovenox ordered. Discharge medication reconciliation done. Discharge follow-up instructions completed. Discharge process discussed with the patient and all questions were answered to patient's satisfaction. Total time spent, exact 35 minutes on discharge meds reconciliation, examination, coordination of care with nurses and ancillary staff, review of imaging and blood test and discussion with the patient on follow-up in structions. Medications at Discharge Home Medications divalproex 500 mg tablet,extended release 24 hr 1,000 mg PO BID 12/02/22 haloperidol 1 mg tablet 2 mg PO DAILY 12/02/22 hydrocortisone 2.5 % topical cream 1 applic topical BID #28 grams 12/03/22 levofloxacin 500 mg tablet 500 mg PO DAILY 5 days #5 tabs 12/03/22 Physical Exam Narrative Seen and examined. No fever. Shortness of breath is improved. Physical exam General: Alert, Oriented x3, Cooperative, morbidly obese, BMI 44.7 kg/m? HEENT: Atraumatic, PERRLA, EOMI, Normocephalic Oral: Deep oropharyngeal structures could not be clearly visualized. No Gingival or Mucosal Lesions/ Ulcerations Neck: Supple, No JVD, Negative Carotid Bruits Lungs: Air entry diminished in bilateral lung bases. No crepitation/rhonchi Cardiovascular: Regular rate, Regular Rhythm, Normal S1, Normal S2, No murmurs Abdomen: Bowel Sounds Present, Soft, Non Tender, Non-Distended : No renal angle tenderness. No suprapubic tenderness. Extremities: No edema, Capillary Refill Less than 3 Seconds Skin: Erythematous rash with thickened skin present over forehead extending to temples, seems chronic dermatitis. Musculoskeletal: No Tenderness to Palpation of Joints or Extremities. ROM full and intact. Neurological: Cranial nerves II-XII grossly intact, DTR 2+/4 , Neuro grossly intact Psych/Mental Status: Mild cognitive deficit. 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 Weight / BMI Weight Weight: 320 lb 5.306 oz Body Mass Index (BMI) 44.6 ABG / Lab / Microbiology Data Result Diagrams: 12/02/22 04:58 12/02/22 04:58 Microbiology: Microbiology 12/02/22 00:16 Urine, Clean Catch Urine Culture - Preliminary Culture exhibits no growth. 12/02/22 00:16 Urine, Clean Catch Legionella Antigen - Final 12/02/22 00:16 Urine, Clean Catch Streptococcus pneumoniae Antigen (M - Final 12/01/22 23:30 Mucosa - Nasopharyngeal Respiratory Panel (PCR) - Final 12/01/22 23:30 Nasal Secretion SARS-CoV-2 Antigen (Rapid) - Final D/C Instructions Discharge Diet: No restrictions Weight Bearing Status: Weight bearing as tolerated Call your doctor if you observe: Fever of 101 or Higher, Coldness, Increased Pain, Numbness or Tingling, Change in Color, Inability to urinate, Inability to have a bowel movement, Shortness of breath, Dizziness, Fainting spells, Swelling in the ankles, Chest pain, Prolonged hiccupping, Increased palpitations (irregular heartbeat) and Calf discomfort When: IN 2 WEEKS Meaningful Use Info Meaningful Use Diagnoses (Choose all that apply): None applicable Discharge Plan Admission Admit Date/Time: 12/02/22 01:06 Primary Reason for Your Visit: Suspected pneumonia. Attending Provider: Andrea Joseph Primary Care Provider: Andrew Miles Consulting Providers: Vince Sosa Discharge Orders/Prescriptions Prescriptions: New levofloxacin 500 mg tablet 500 mg PO DAILY 5 Days Qty: 5 0RF hydrocortisone 2.5 % Cream 1 applic topical BID Qty: 28 0RF Protocol: *Topical Application Instructions APPLICATION INSTRUCTIONS: On forehead Rx Instructions: apply on forehead Continued haloperidol 1 mg Tablet 2 mg PO DAILY divalproex 500 mg Tablet Extended Release 24 Hr 1,000 mg PO BID Referrals / Follow Up: Cecilio Avila DO [Med Staff - Active Staff] - Within 1 Month (for PFT and sleep study.) Pili Castaneda MD [Non-Staff] - Andrew Miles MD [Primary Care Provider] - Disposition Disposition (needs filled in before D/C Order can be placed): Home, Self Care Charges/Coding Visit Charges Inpatient E&M: 70632 Disch Hosp >30min
[2022-12-03 14:56] VITALS: BP 127/90; PULSE 93; RESP 18; TEMP 37; O2SAT 96
== END 2022-12-03 14:45 | disposition home or self-care (01) | DRG 194 ==
LOC: ED 12-02 00:27 → MS3 12-02 01:26
PROVIDERS: Admitting Provider Hospitalist; Emergency Provider Emergency Medicine; PCP Family Medicine; Visit Provider Internal Medicine
DX: J18.9 Pneumonia, unspecified organism (principal); Z68.41 Body mass index [BMI] 40.0-44.9, adult; J98.11 Atelectasis; E66.01 Morbid (severe) obesity due to excess calories; E87.6 Hypokalemia; G47.33 Obstructive sleep apnea (adult) (pediatric); L30.9 Dermatitis, unspecified; G31.84 Mild cognitive impairment of uncertain or unknown etiology; Z79.899 Other long term (current) drug therapy; Z86.61 Personal history of infections of the central nervous system
CPT/HCPCS: 36415; 71045; 80048; 80053; 81001; 82803; 83605; 84145; 84484; 85025; 85610; 85730; 87040; 87086; 87449; 87633; 87811; 93005; 94640; 99252; 99284; J7030; J7040; A4216; G0463; J0696

== ENCOUNTER → 2023-10-23 | Outpatient (CLI) | payer SELFPAY ==
[2023-10-23 09:04] LABS: Hematocrit 46.3 % (40-54); Hemoglobin 14.5 g/dL (13.0-16.5); Mean Corp Hgb Conc 31.3 g/dL (32-36); Mean Corpuscular Hgb 27.2 pg (27.0-32.0); Mean Corpuscular Volume 86.9 fL (80-94); Mean Platelet Vol. 11.3 fl (6.2-12.0); Platelet Count 206 K/mm3 (150-450); RBC Distribution Width CV 13.2 % (11.6-14.6); RBC Distribution Width SD 41.3 fl (35.1-43.9); Red Blood Count 5.33 M/mm3 (4.6-6.2); White Blood Count 5.3 K/mm3 (4.4-11.0)
--- OUTSIDE RECORDS SUMMARY | 2023-10-23 09:36 | XMS RPT_ITS | CCD ---
Author Name Unknown Address [address] [place] [address] Organization [facility] Care Team Providers Care Child Psychologist Name Role Phone SHARAN ZULETA MD Admitting Unavailable SHARAN ZULETA MD Primary Care Unavailable SHARAN ZULETA MD Attending Unavailable KAJAL CRUMP MD Consulting Unavailable PROVIDER, UNKNOWN Consulting Unavailable PROVIDER, UNKNOWN Consulting Unavailable PROVIDER, UNKNOWN Consulting Unavailable SHARAN ZULETA MD Admitting Unavailable SHARAN ZULETA MD Primary Care Unavailable SHARAN ZULETA MD Attending Unavailable KAJAL CRUMP MD Consulting Unavailable PROVIDER, UNKNOWN Consulting Unavailable PROVIDER, UNKNOWN Consulting Unavailable PROVIDER, UNKNOWN Consulting Unavailable Results Test Name Value Interpretation Reference Range Facil ity Encounters Encounter Date Encounter Type Care Provider Facility Start: 08-28-2022 End: 08-28-2022 [facility] Summary Purpose Family History No Family History Records FoundNo Family History Records Found Advance Directives No Advanced Directives Records FoundNo Advanced Directives Records Found Additional Source Comments (unrecognized sect ion and content) No Status Records FoundNo Status Records Found INFORMATION SOURCE (unrecogn ized section and content) DATE CREATED AUTHOR AUTHOR'S ORGANIZ ATION 08/29/2022 [facility] FOR RECORDS PERTAINING TO PATIENTS WHO ARE OR HAVE BEEN ENROLLED IN A CHEMICAL DEPENDENCY/SUBSTANCEABUSE PROGRAM, SOME INFORMATION MAY BE OMITTED. This clinical summary was aggregated from multiple sources. Caution should be exercised in using it in the provision of clinical care. This summary normalizes information from multiple sources, and as a consequence, information in this document may materially change the coding, format and clinical context of patient data. In addition, data may be omitted in some cases. CLINICAL DECISIONS SHOULD BE BASED ON THE PRIMARY CLINICAL RECORDS. [employer] [facility]. provides no warranty or guarantee of the accuracy or completeness of information in this document.
[2023-10-23 09:54] LABS: ALB/GLOB Ratio 0.7 RATIO (0.9-2.4); AST(SGOT) 16 U/L (15-37); Alanine Aminotransfer ALT/SGPT 36 U/L (16-61); Albumin, Serum 3.2 g/dL (3.2-5.0); Alkaline Phosphatase 62 U/L (45-117); Anion Gap 2 (5-15); BUN 12 mg/dL (7-18); BUN/Creat Ratio 12.7 RATIO (10-20); Calcium,Total 9.3 mg/dL (8.5-10.1); Chloride 109 mmol/L (98-107); Creatinine, Serum 0.94 mg/dL (0.70-1.30); EST Glomerular Filtration Rate 92 mL/min (>60); Est Glom Filt Rate - Afr Amer 112 mL/min (>60); Globulin 4.5 g/dL (2.2-4.2); Glucose 97 mg/dL (74-106); Potassium 3.9 mmol/L (3.5-5.1); Protein, Total 7.7 g/dL (6.4-8.2); Sodium Level 140 mmol/L (136-145)
[2023-10-23 10:36] LABS: Valproic Acid (Depakene) Level 79 ug/mL (50-100)
== END | disposition home or self-care (01) ==
LOC: LAB 08:48
PROVIDERS: PCP Family Medicine; Referring Provider Psychiatry & Neurology Psychiatry; Visit Provider Psychiatry & Neurology Psychiatry
DX: F19.10 Other psychoactive substance abuse, uncomplicated (principal); R53.83 Other fatigue; Z79.899 Other long term (current) drug therapy
CPT/HCPCS: 36415; 80053; 80164; 82140; 85027